=== PATIENT | female | born 1975 | race African-American/Black ===

== ENCOUNTER 2019-05-01 15:38 | Emergency (ER) | payer BC, SELFPAY ==
--- NOTE | ~2019-05-01 | XR_ITS ---
EXAMINATION: XR chest 2V 05/01/2019 16:11 INDICATION: Right-sided chest pain and dyspnea PROCEDURE: 2 view chest COMPARISON: 12/15/2018 FINDINGS: The lungs are clear. There are breast implants. The cardiomediastinal silhouette is within normal limits. There are no pleural effusions. There is no pneumothorax suspected. IMPRESSION: 1: NO ACUTE CARDIOPULMONARY DISEASE. Reviewed, dictated and finalized at location A. [facility]
--- NOTE | 2019-05-01 15:40 | ED.GENADULT ---
HPI - General Adult General Chief complaint: Chest Pain Stated complaint: R SIDE CP Time Seen by Provider: 05/01/19 15:41 Source: patient Mode of arrival: EMS Limitations: no limitations History of Present Illness HPI narrative: The pt is a 44 y/o female who presents to the ED, via EMS, with c/o CP that began today at 12:00. The pt states that the CP is located on the rt side of her chest and does not radiate anywhere else. She describes the pain as sharp. It is worsened with breathing but nothing makes it better. The pt notes that she took an ASA at work prior to her arrival to the ED. She reports nausea and vomiting, but denies fever, chills, diarrhea, dysuria, or urinary frequency. The pt works a fairly physical job but has been working there for about 4 months. She has had pain on the lt side of her chest in the past, which was diagnosed as a pulled muscle. The pt has no medical problems and the only medications she is on are oral contraceptives. The pt does not smoke but drinks occasionally. She has no FHx of IA. complaint: CP Onset (ago): hour(s) (today at 12:00) Location: chest (rt) Radiation: non-radiation Quality: sharp Relieving factors: none Exacerbating factors: other (breathing) Associated symptoms: nausea/vomiting Treatments prior to arrival: aspirin Related Data Home Medications Medication Instructions Recorded Confirmed desogestrel-ethinyl estradiol 1 tablet PO DAILY 05/01/19 05/01/19 [Apri] Allergies Allergy/AdvReac Type Severity Reaction Status Date / Time Penicillins Allergy Unknown Rash Verified 05/01/19 15:52 Review of Systems Review of Systems: All systems reviewed & are unremarkable except as noted in HPI and below Constitutional: Constitutional: Denies chills and Denies fever(s) Cardiovascular: Cardiovascular: Reports chest pain Gastrointestinal: Gastrointestinal: Denies diarrhea, Reports nausea and Reports vomiting Genitourinary: Genitourinary: Denies nocturia and Denies dysuria PMFSH Past Medical History Medical History (Updated 05/01/19 @ 18:11 by Bryce Madden MD) Healthy female Surgical History Surgical History (Updated 05/01/19 @ 15:52 by Noelle Roman) No pertinent past surgical history Social History Social History (Updated 05/01/19 @ 15:53 by Noelle Mao Smoking status: Never smoker Alcohol intake: current Gender identity (if verbalized by the patient): Female Exam Narrative: Exam Narrative: General appearance: Well-developed, well-nourished Skin: Normal color Head: Normocephalic, nontraumatic Eyes: Clear conjunctiva ENT: Oropharynx normal, ears normal, nose normal Neck: Supple, nontender Chest and respiratory: Airway patent, no respiratory distress, no accessory muscle use Heart: Regular rate/rhythm Abdomen: Soft, nontender, no organomegaly, quiet bowel sounds Vascular: Normal peripheral pulses, normal capillary refill. Musculoskeletal: Normal range of motion, nontender back Neurologic: Alert and oriented ?3, [employer] is normal as tested, no gross motor deficit Course Course Emergency Course: Improved Vital Signs Vital signs: Vital Signs Temperature 36.9 C 05/01/19 15:44 Pulse Rate 77 05/01/19 15:44 Respiratory Rate 19 05/01/19 15:44 Blood Pressure 145/91 H 05/01/19 15:44 Pulse Oximetry 100 05/01/19 15:44 Temperature 36.9 C 05/01/19 15:44 Pulse Rate 77 05/01/19 15:44 Respiratory Rate 19 05/01/19 15:44 Blood Pressure 145/91 H 05/01/19 15:44 Pulse Oximetry 100 05/01/19 15:44 Medical Decision Making MDM Narrative Medical decision making narrative: Patient presents with right chest pain, sharp, worse with breat
[2019-05-01 15:44] VITALS: BP 145/91; PULSE 77; RESP 19; TEMP 36.9; O2SAT 100
--- NOTE | 2019-05-01 15:46 | ECG_ITS ---
Measurements Intervals Felch Rate: 75 P: 24 TN: 150 QRS: 21 QRSD: 89 T: 17 QT: 379 QTc: 424 Interpretive Statements SINUS RHYTHM DELAYED PRECORDIAL R/S TRANSITION BORDERLINE ECG Electronically Signed On 05-01-2019 19:41:39 [employer] by Romaine Pruitt D.O.
[2019-05-01] MEDS: ASPIRIN 81 MG CHEWABLE TABLET 324 MG PO (15:57)
[2019-05-01] MEDS: KETOROLAC 30 MG/ML VIAL (*BKC) IV PUSH (15:57)
[2019-05-01 16:03] LABS: Basophils Percent Auto 0.5 % (0.2-1.2); Eosinophils Absolute Auto 0.2 K/mm3 (0-0.3); Eosinophils Percent Auto 3.6 % (0-4.4); Hematocrit 34.7 % (37.0-47.0); Hemoglobin 11.1 g/dL (12.0-15.0); Lymphocytes Percent Auto 54.7 % (18.3-44.2); Mean Corpuscular Hemoglobin 27.8 pg (26-34); Mean Platelet Volume 9.9 fl (7.4-10.4); Monocytes Absolute Auto 0.5 K/mm3 (0.1-0.6); Monocytes Percent Auto 8.2 % (2.6-8.5); Neutrophils Absolute Auto 1.9 K/mm3 (1.3-6.7); Platelet Count Result 252 k/mm3 (150-375); Red Blood Count 3.99 M/mm3 (4.2-5.4); Red Cell Distribution Width 13.1 % (11.5-14.5); White Blood Count 5.9 K/mm3 (4.5-10.0)
[2019-05-01 16:12] LABS: INR 0.9; Prothrombin Time 11.9 Seconds (11.1-14.7)
[2019-05-01 16:13] LABS: Partial Thromboplastin Time 29.4 SECONDS (22.3-36.8)
[2019-05-01 16:14] LABS: Blood Urea Nitrogen 9 mg/dL (7-17); Calcium 9.1 mg/dL (8.4-10.2); Carbon Dioxide 20 mmol/L (22-30); Chloride 108 mmol/L (98-107); Estimated CRCL calculation 88 ml/min; Estimated Glomerular Filt Rate > 60; Glucose 92 mg/dL (65-105); Potassium 3.5 mmol/L (3.4-5.0); Sodium 137 mmol/L (137-145)
[2019-05-01 16:26] LABS: Troponin I < 0.012 ng/mL (0.000-0.034)
[2019-05-01] MEDS: ONDANSETRON INJ 4 MG/2 ML VIAL IV PUSH (18:24)
[2019-05-01 18:25] VITALS: BP 150/97; PULSE 77; RESP 17; O2SAT 100
== END 2019-05-01 18:27 | disposition home or self-care (01) ==
PROVIDERS: Emergency Provider Emergency Medicine
DX: R07.9 Chest pain, unspecified (principal); R94.31 Abnormal electrocardiogram [ECG] [EKG]
CPT/HCPCS: 36415; 71046; 80048; 84484; 85025; 85380; 85610; 85730; 93005; 96374; 96375; 99284; A9270; J1885; J2405